=== PATIENT | male | born 1980 | race Caucasian/White ===

== ENCOUNTER 2023-06-22 10:48 | Outpatient (CLI) | payer MEDICAID, SELFPAY ==
--- NOTE | 2023-06-22 11:23 | XR_ITS ---
WS: [id number] XR thoracic spine 2V [id number] REASON FOR EXAM: CHRONIC LOW BACK PAIN/THORACIC BACK PAIN FINDINGS: Mild thoracic scoliosis convex left. No significant kyphosis. Normal vertebral bodies. Intervertebral disc spaces are intact and relatively well preserved. IMPRESSION: Mild thoracic scoliosis which appears to have developed since the previous examination of 01/14/2015.
--- NOTE | 2023-06-22 11:23 | XR_ITS ---
WS: [id number] XR lumbar spine min 4V [id number] REASON FOR EXAM: CHRONIC THORACIC BACK PAIN FINDINGS: Minimal rotatory scoliosis convex right. No significant vertebral body abnormality. Intervertebral disc spaces are intact and well preserved. No significant listhesis. IMPRESSION: Mild rotatory scoliosis, otherwise no significant abnormality.
== END 2023-06-22 10:49 | disposition home or self-care (01) ==
LOC: RAD 10:54
PROVIDERS: PCP Family Medicine; Visit Provider Orthopaedic Surgery
DX: M41.87 Other forms of scoliosis, lumbosacral region (principal)
CPT/HCPCS: 72070; 72110

== ENCOUNTER → 2025-07-28 15:27 | Outpatient (BNVA) | payer MEDICAID, SELFPAY | PROVIDERS: PCP Family Medicine; Visit Provider Orthopaedic Surgery | DX: M48.02 Spinal stenosis, cervical region (principal); M54.9 Dorsalgia, unspecified | CPT/HCPCS: 72050; 72072; 99203 ==

== ENCOUNTER 2025-08-14 13:59 | Outpatient (CLI) | payer MEDICAID, SELFPAY ==
--- NOTE | 2025-08-14 14:30 | MR_ITS ---
WS: [id number] MRI CERVICAL SPINE NONCONTRAST TECHNIQUE: Sagittal T1, T2 and STIR imaging. Axial T2, gradient, and fiesta imaging. CLINICAL INFORMATION: Neck pain COMPARISON: None. FINDINGS: Straightening of the normal cervical doses. Disc bulging worse C6-7 with slight indentation on the cervical cord. Mild central canal stenosis. C2-C3: Normal. C3-C4: Normal. C4-C5: Mild facet arthropathy. Mild LEFT bony foraminal narrowing. C5-C6: Mild LEFT bony foraminal narrowing. Mild facet arthropathy. Spinal canal is patent. C6-C7: Broad-based central disc protrusion. Mild central canal stenosis. Moderate LEFT bony foraminal narrowing. RIGHT foramen is patent. Mild facet arthropathy. C7-T1: Mild LEFT bony foraminal narrowing. Spinal canal is patent. Visualized brain stem structures: Normal. Prevertebral soft tissues: Normal. MR/MR cervical spin wo con* [id number] IMPRESSION: 1. Mild central canal stenosis C6-7 with broad-based central disc protrusion. Moderate LEFT bony foraminal narrowing at this level. 2. Spinal canal is otherwise patent. 3. Mild LEFT C4-5, C5-6, and C7-T1 bony foraminal narrowing.
== END 2025-08-14 14:00 | disposition home or self-care (01) ==
LOC: RAD 14:04
PROVIDERS: PCP Family Medicine; Visit Provider Orthopaedic Surgery
DX: M48.02 Spinal stenosis, cervical region (principal); M47.812 Spondylosis without myelopathy or radiculopathy, cervical region; M50.223 Other cervical disc displacement at C6-C7 level
CPT/HCPCS: 72141

== ENCOUNTER → 2025-08-25 13:38 | Outpatient (BNVA) | payer MEDICAID, SELFPAY | PROVIDERS: PCP Family Medicine; Visit Provider Orthopaedic Surgery | DX: M48.04 Spinal stenosis, thoracic region (principal); M50.123 Cervical disc disorder at C6-C7 level with radiculopathy | CPT/HCPCS: 99213 ==

== ENCOUNTER 2025-09-02 15:47 | Outpatient (CLI) | payer MEDICAID, SELFPAY ==
--- NOTE | 2025-09-02 16:00 | MR_ITS ---
WS: [id number] MRI THORACIC SPINE noncontrast HISTORY: Back pain COMPARISON: 03/05/2015 TECHNIQUE: Multiplanar sequences are performed in sagittal and axial planes. Reidentified is a recently described central disc protrusion at C6-7 contacting the ventral cord. Normal alignment of the thoracic vertebrae. Chronic mild anterior wedging of T4 unchanged since 03/05/2015. No acute or new fractures or marrow edema. Signal within the cord is normal. No cord atrophy or edema. No cord enlargement. T1-2: Normal. T2-3: Normal. T3-4: Mild bilateral facet arthritis. T4-5: Mild facet arthritis. Mild foraminal narrowing. T5-6: Normal. T6-7: Mild facet arthritis. T7-8: Mild facet arthritis. T8-9: Mild facet arthritis and mild foraminal stenosis. T9-10: Mild bilateral facet arthritis and foraminal stenosis. T10-11: Mild bilateral facet arthritis and foraminal stenosis. T11-12: Mild facet arthritis and foraminal stenosis. MR/MR thoracic spin wo con* [id number] IMPRESSION: 1. No high-grade central or foraminal stenosis. 2. Normal signal in the thoracic cord. 3. Facet joint arthropathy and mild foraminal stenosis at multiple levels has developed since 03/05/2015. 4. Reidentified is the recently described disc protrusion at C6-7. 5. Stable mild anterior wedging of T4.
== END 2025-09-02 15:48 | disposition home or self-care (01) ==
LOC: RAD 15:48
PROVIDERS: PCP Family Medicine; Visit Provider Orthopaedic Surgery
DX: M47.814 Spondylosis without myelopathy or radiculopathy, thoracic region (principal); M48.04 Spinal stenosis, thoracic region; M48.54XS Collapsed vertebra, not elsewhere classified, thoracic region, sequela of fracture; M51.24 Other intervertebral disc displacement, thoracic region
CPT/HCPCS: 72146

== ENCOUNTER → 2025-09-15 09:02 | Outpatient (BNVA) | payer MEDICAID, SELFPAY | PROVIDERS: PCP Family Medicine; Visit Provider Orthopaedic Surgery | DX: M54.6 Pain in thoracic spine (principal); Z51.89 Encounter for other specified aftercare | CPT/HCPCS: 99213 ==